=== PATIENT | female | born 1935 | race Caucasian/White ===

== ENCOUNTER 2018-07-04 12:24 | Outpatient (REF) | payer MEDICARE, SELFPAY ==
[2018-07-04 21:45] LABS: Mean Corp. HGB Concentration 30.8 g/dL (32.0-36.0); Mean Corpuscular Hemoglobin 28.5 pg (27.0-33.0); Mean Corpuscular Volume 92.6 fL (80-95); Mean Platelet Volume 9.7 fL (8.0-11.0); Platelet Count 240 x1000/uL (130-400); RBC 4.21 m/cumm (4.00-5.20); RBC Distribution Width 15.2 % (11.7-14.6); White Blood Cell Count 5.62 k/cumm (4.4-10.8)
[2018-07-04 22:07] LABS: Anion Gap 9.9 mmol/L (3-11); BUN 34 mg/dL (7-18); CO2 28.1 mmol/L (21.0-32.0); Calcium 8.5 mg/dL (8.5-10.1); Chloride 109 mmol/L (98-107); Glucose 138 mg/dL (70-100); Potassium 4.4 mmol/L (3.5-5.1); Sodium 147 mmol/L (136-145); TSH (W/Ref FT4) 3.32 uIU/mL (0.358-3.74)
[2018-07-04 22:39] LABS: Hemoglobin A1C 7.1 % (4.5-6.2)
[2018-07-09 10:37] LABS: Methylmalonic Acid 0.44 nmol/mL (<=0.40)
== END 2018-07-04 12:44 ==
LOC: NCHCN 12:24
PROVIDERS: PCP Family Medicine; Visit Provider Family Medicine
DX: E11.9 Type 2 diabetes mellitus without complications (principal); E53.8 Deficiency of other specified B group vitamins
CPT/HCPCS: 80048; 80186; 85027; 83036; 84443

== ENCOUNTER 2018-10-03 13:59 | Outpatient (REF) | payer MEDICARE, SELFPAY ==
[2018-10-03 19:24] LABS: HCT 39.3 % (36.0-46.0); HGB 12.4 g/dL (12.0-15.5); Mean Corp. HGB Concentration 31.6 g/dL (32.0-36.0); Mean Corpuscular Volume 91.8 fL (80-95); Platelet Count 222 x1000/uL (130-400); RBC 4.28 m/cumm (4.00-5.20); RBC Distribution Width 14.9 % (11.7-14.6)
[2018-10-03 19:39] LABS: Bilirubin Negative (Negative); Blood Negative (Negative); Clarity Clear; Glucose Negative (Negative); Ketones Negative (Negative); Leukocyte Esterase Trace (Negative); Nitrite Negative (Negative); Specific Gravity 1.015 (1.005-1.025); Urobilinogen 0.2 EU/dL (Up TO 0.2)
[2018-10-03 20:02] LABS: ALT 25 U/L (12-78); AST 16 U/L (15-37); Albumin 3.3 g/dL (3.4-5.0); Alkaline Phosphatase 120 U/L (46-116); Anion Gap 7.6 mmol/L (3-11); BUN 31 mg/dL (7-18); Bilirubin, Total 0.4 mg/dL (0.2-1.0); CO2 30.4 mmol/L (21.0-32.0); CREATININE 1.44 mg/dL (0.55-1.02); Calcium 8.6 mg/dL (8.5-10.1); Chloride 108 mmol/L (98-107); Estimated GFR 34.85 (mL/min/1.73m2); Glucose 105 mg/dL (70-100); Potassium 4.6 mmol/L (3.5-5.1); Sodium 146 mmol/L (136-145); TSH (W/Ref FT4) 2.22 uIU/mL (0.358-3.74); Total Protein 6.2 g/dL (6.4-8.2)
[2018-10-03 20:02] LABS: Epithelial Cells Many HPF (Negative); RBC Negative (0-2)
[2018-10-03 20:03] LABS: Bacteria Few HPF (Negative); C & S Indicated? No/Sq. Contamination; Casts Negative LPF (Negative); Crystals Negative HPF (Negative); Mucus Negative (Negative)
[2018-10-11 12:43] LABS: Codeine Negative ng/mL (Cutoff: 25); Dihydrocodeine Negative ng/mL (Cutoff: 25); Hydrocodone Negative ng/mL (Cutoff: 25); Hydromorphone Negative ng/mL (Cutoff: 25); Morphine Negative ng/mL (Cutoff: 25); Naloxone Negative ng/mL (Cutoff: 25); Norhydrocodone Negative ng/mL (Cutoff: 25); Noroxycodone Negative ng/mL (Cutoff: 25); Noroxymorphone Negative ng/mL (Cutoff: 25); Opiates Interpretation Negative.
== END 2018-10-03 14:19 ==
LOC: NCHCN 13:59
PROVIDERS: PCP Family Medicine; Visit Provider Family Medicine
DX: E03.9 Hypothyroidism, unspecified (principal); I10 Essential (primary) hypertension; R31.9 Hematuria, unspecified; R10.9 Unspecified abdominal pain; Z79.899 Other long term (current) drug therapy
CPT/HCPCS: 80053; 80361; 85027; 81003; 81015; 84443

== ENCOUNTER 2019-05-13 22:28 | Outpatient (REF) | payer MEDICARE, SELFPAY ==
[2019-05-13 20:50] LABS: Abs Immature Grans 0.01 k/cumm (0.0-0.09); Absolute Basophil Count 0.02 k/cumm (0.0-0.2); Absolute Eosinophil Count 0.17 k/cumm (0.0-0.7); Absolute Lymphocyte Count 1.56 k/cumm (1.2-3.4); Absolute Monocyte Count 0.53 k/cumm (0.11-0.7); Basophils % 0.3; Eosinophils % 2.5; HCT 38.5 % (36.0-46.0); HGB 11.9 g/dL (12.0-15.5); Immature Grans % 0.1; Lymphocytes % 23.3; Mean Corp. HGB Concentration 30.9 g/dL (32.0-36.0); Mean Corpuscular Hemoglobin 28.3 pg (27.0-33.0); Mean Corpuscular Volume 91.4 fL (80-95); Mean Platelet Volume 9.2 fL (8.0-11.0); Monocytes % 7.9; Neutrophils % 65.9; Platelet Count 333 x1000/uL (130-400); RBC 4.21 m/cumm (4.00-5.20); RBC Distribution Width 15.5 % (11.7-14.6); White Blood Cell Count 6.69 k/cumm (4.4-10.8)
[2019-05-13 21:01] LABS: Prothrombin Time 19.5 sec (9.3-11.0)
[2019-05-13 21:07] LABS: ALT 14 U/L (14-59); Albumin 3.1 g/dL (3.4-5.0); Alkaline Phosphatase 115 U/L (46-116); Anion Gap 10.9 mmol/L (3-11); BUN 34 mg/dL (7-18); Bilirubin, Total 0.2 mg/dL (0.2-1.0); CO2 29.1 mmol/L (21.0-32.0); CREATININE 1.41 mg/dL (0.55-1.02); Calcium 8.5 mg/dL (8.5-10.1); Chloride 107 mmol/L (98-107); Estimated GFR 35.62 (mL/min/1.73m2); Glucose 129 mg/dL (70-100); Potassium 4.6 mmol/L (3.5-5.1); Sodium 147 mmol/L (136-145); Total Protein 6.4 g/dL (6.4-8.2)
[2019-05-13 21:24] LABS: AST 18 U/L (15-37)
== END 2019-05-13 22:48 ==
LOC: NCHCN 22:28
PROVIDERS: Physician Assistant Medical; PCP Family Medicine; Visit Provider Family Medicine
DX: I10 Essential (primary) hypertension (principal); Z79.01 Long term (current) use of anticoagulants; Z86.718 Personal history of other venous thrombosis and embolism; Z01.818 Encounter for other preprocedural examination
CPT/HCPCS: 80053; 85025; 85610

== ENCOUNTER 2019-06-25 20:10 | Inpatient (IN) | payer MEDICARE, SELFPAY ==
[2019-06-25] VITALS (24 sets, daily range): BP systolic 104–147; BP diastolic 53–92; PULSE 60–95; RESP 13–27; TEMP 36.9–37.4; O2SAT 91–96
--- NOTE | 2019-06-25 20:40 | ED.GENADUL_ITS ---
Discharge Plan Disposition Patient Disposition: [facility] INPATIENT Condition: Poor Discharge Details Chief Complaint: GenMedical Clinical Impression: Acute cholecystitis Primary Care Provider: Cassandra Wilson V ED Provider: Mauricio Starr [place] Meds and New Rx's Prescriptions: No Action furosemide 40 MG tablet 40 mg PO DAILY RF: 0 gabapentin [Neurontin] 600 MG tablet 600 mg PO TID RF: 0 nystatin [Nystop] 60 GM powder 1 applic Topical .QOD PRNRF: 0 glucosamine villanueva 2KCl-chondroit 1 EACH tablet 2 tab PO DAILY RF: 0 cholecalciferol (vitamin D3) 1,000 UNITS tablet 1 tab PO DAILY RF: 0 warfarin [Coumadin] 2.5 MG tablet 0 mg PO QPM Qty: 50 RF: 0 losartan 100 MG tablet 100 mg PO QAM Qty: 1 RF: 0 hydrocodone-acetaminophen [Vicodin] 1 EACH tablet 1 ea PO BID PRNQty: 2 RF: 0 levothyroxine [Synthroid] 75 MCG tablet 75 mcg PO DAILY Qty: 1 RF: 0 Medical Decision Making Patient presenting with nausea/vomiting and general weakness with inability to keep anything down over the last few days. Has generalized abdominal discomfort but has a nontender abdomen. Initial blood pressure low but subsequently after fluids here normal. Her A. fib is rate controlled. Consider bowel obstruction as she has had hysterectomy in the past. Consider gastroenteritis. Consider sepsis but suspect low blood pressure is more related to dehydration. Continue fluid resuscitation. Check laboratory studies and EKG. CT scan of chest/abdomen/pelvis ordered without contrast given previous elevated creatinine. 22:20 -patient much more comfortable after Phenergan and morphine. Laboratory studies significant for a white count of 12.8. Hemoglobin is 9.3 which is unchanged from earlier this month but no anemia in the last few months. INR is 1.6. Creatinine elevated to 1.8 which is a little above her baseline. Liver function is okay. Troponin is negative. Lipase is normal. Urine dip was negative for everything except protein. Micro shows 5-10 white cells but will not treat for UTI unless culture positive. EKG shows rate controlled A. fib. C T of the chest/abdomen/pelvis without contrast shows no chest pathology. She has evidence of acute cholecystitis as well as inflammatory changes of the retroperitoneal duodenum. Case discussed with surgery, Dr. Coles. Patient will be given Zosyn IV and vitamin K p.o. here. Patient to be admitted to surgical service for further management of the acute cholecystitis. Patient and aware of diagnosis and need for admission. Medical Records Medical records reviewed: Yes I reviewed the patient's medical records. Lab Data Lab results reviewed: Yes I reviewed the patient's lab results. ECG Data Attestation: I personally reviewed and interpreted this ECG (s) as follows: Prior ECG tracings: not available for review Interpretation: Atrial fibrillation at a rate of 81. Normal intervals and axis. Normal ST segments. HPI General Mode of arrival: EMS . Date/Time Provider Initiated Documentation: 06/25/19 20:27 . Limitations to Documentation: no limitations . Information obtained by: patient, EMS, RN notes reviewed and old records reviewed . HPI Narrative: Patient brought in by ambulance for evaluation of vomiting and not feeling well. Patient has been ill for the last 5 days. Has not been able to keep anything down for the last few days. Has not been able to take her medications. Reports low-grade fevers at home. Denies cough or shortness of breath. Denies chest pain. Has abdominal discomfort, nausea and vomiting. Reports one episode of diarrhea yesterday. Does continue to make some urine. Feels generally weak. Initial blood pressure for EMS was in the 80s. She has received about 200 of fluid and blood pressure is now normal on arrival. She received Zofran but still has some nausea. Related Data Home Medications Medication Instructions Recorded Confirmed furosemide 40 mg PO DAILY 05/26/14 06/25/19 gabapentin [Neurontin] 600 mg PO TID 05/26/14 06/25/19 glucosamine villanueva 2KCl-chondroit 2 tab PO DAILY 05/26/14 06/25/19 nystatin [Nystop] 1 applic TOPICAL .QOD PRN 05/26/14 06/25/19 cholecalciferol (vitamin D3) 1 tab PO DAILY 11/10/14 06/25/19 warfarin [Coumadin] 0 mg PO QPM #50 tab 11/14/14 06/25/19 hydrocodone-acetaminophen [Vicodin 1 ea PO BID PRN #2 tablet 11/28/16 06/25/19 5-300 mg Tablet] levothyroxine [Synthroid] 75 mcg PO DAILY #1 tablet 11/28/16 06/25/19 losartan 100 mg PO QAM #1 tab 11/28/16 06/25/19 Previous Rx's Medication Instructions Recorded warfarin [Coumadin] 0 mg PO QPM #50 tab 11/14/14 hydrocodone-acetaminophen [Vicodin 1 ea PO BID PRN #2 tablet 11/28/16 5-300 mg Tablet] levothyroxine [Synthroid] 75 mcg PO DAILY #1 tablet 11/28/16 losartan 100 mg PO QAM #1 tab 11/28/16 Allergies Allergy/AdvReac Type Severity Reaction Status Date / Time propranolol AdvReac Mild Dizziness/L Unverified 06/25/19 21:10 ightheade General Stated Complaint: GenMedical ALVIN: 3 Review of Systems Narrative: 05/11 Review of Systems completed and is negative except as stated above in HPI (Systems reviewed: Const, Eyes, ENT, Resp, CV, GI, , MSK, Skin, Neuro) [facility] Medical History Atrial fibrillation (Chronic) CKD (chronic kidney disease) (Chronic) a. baseline creatinine 1.4 to 1.5 Diabetes mellitus, type II (Chronic) Glaucoma (Chronic) Hypertension (Chronic) Hypothyroidism (Chronic) Melanoma (Inactive) Obesity (Chronic) Pulmonary embolism (Chronic) Spinal stenosis (Chronic) Surgical History (Updated 06/25/19 @ 22:27 by Mauricio Starr MD) S/P hysterectomy (Inactive) Status post total shoulder replacement (Chronic) Social History Smoking/Tobacco Use Status: Never Alcohol Intake: never Drug use: Never Substance use type: does not use Do you feel safe at home: Yes Do you feel safe in your relationship?: Yes Exam Narrative Exam Narrative: Vitals: Afebrile. Normal vital signs and room air pulse oximetry. Const: Elderly obese female who appears to feel unwell but is not in acute distress. HEENT: NC/AT. Normal facial exam. Dry mucous membranes. Eyes: Normal conjunctiva and sclera. Neck: Supple. Trachea midline. Lungs: Normal respiratory effort. Lungs are clear. Cor: Irr/irr without murmur/gallop. Good distall pulses. GI: Soft. NT/ND. No guarding or rebound. Neuro: A+O x 3. CN grossly in tact. General weakness but no focal deficit. Ext: No C/C/. Pedal edema present. Skin: Warm and dry without rash. Course Vital Signs Vital signs: Vital Signs Temperature 99.3 F 06/25/19 20:21 Pulse 86 06/25/19 20:21 Respiratory Rate 23 06/25/19 20:21 Blood Pressure 145/60 H 06/25/19 20:21 Pulse Oximetry 96 06/25/19 20:21 Temperature 99.3 F 06/25/19 20:21 Temperature Source Skin 06/25/19 20:21 Pulse 86 06/25/19 20:21 Respiratory Rate 23 06/25/19 20:21 Respiratory Effort 06/25/19 20:34 Blood Pressure 145/60 H 06/25/19 20:21 Blood Pressure Position Supine 06/25/19 20:21 Pulse Oximetry 96 06/25/19 20:21 Oxygen Delivery Method Room Air 06/25/19 20:21 Oxygen Flow Rate 0 06/25/19 20:21 Pain Level 7 06/25/19 20:21
[2019-06-25] MEDS: Normal Saline 1,000 ML 1000 ML IV (20:56)
[2019-06-25] MEDS: Lactated Ringers 1,000 ML 125 ML IV (21:09)
[2019-06-25 21:10] LABS: Abs Immature Grans 0.03 k/cumm (0.0-0.09); Absolute Basophil Count 0.01 k/cumm (0.0-0.2); Absolute Eosinophil Count 0.01 k/cumm (0.0-0.7); Absolute Lymphocyte Count 0.81 k/cumm (1.2-3.4); Absolute Monocyte Count 0.88 k/cumm (0.11-0.7); Absolute Neutrophil Count 11.07 k/cumm (1.2-6.7); Basophils % 0.1; Eosinophils % 0.1; HCT 31.5 % (36.0-46.0); HGB 9.3 g/dL (12.0-15.5); Immature Grans % 0.2; Lymphocytes % 6.3; Mean Corp. HGB Concentration 29.5 g/dL (32.0-36.0); Mean Corpuscular Hemoglobin 27.4 pg (27.0-33.0); Mean Corpuscular Volume 92.6 fL (80-95); Monocytes % 6.9; Neutrophils % 86.4; Platelet Count 298 x1000/uL (130-400); RBC Distribution Width 16.7 % (11.7-14.6); White Blood Cell Count 12.81 k/cumm (4.4-10.8)
[2019-06-25 21:15] LABS: INR 1.6 (0.9-1.1); Prothrombin Time 16.4 sec (9.3-11.0)
[2019-06-25 21:28] LABS: ALT 21 U/L (14-59); AST 13 U/L (15-37); Albumin 2.4 g/dL (3.4-5.0); Alkaline Phosphatase 128 U/L (46-116); BUN 38 mg/dL (7-18); Bilirubin, Total 0.6 mg/dL (0.2-1.0); CREATININE 1.78 mg/dL (0.55-1.02); Calcium 8.2 mg/dL (8.5-10.1); Chloride 106 mmol/L (98-107); Estimated GFR 27.22 (mL/min/1.73m2); Glucose 125 mg/dL (74-106); Magnesium 2.2 mg/dL (1.8-2.4); Potassium 4.1 mmol/L (3.5-5.1); Sodium 145 mmol/L (136-145); Total Protein 7.1 g/dL (6.4-8.2); Troponin I < 0.05 ng/Ml (<0.06)
--- NOTE | 2019-06-25 21:34 | DI.CT_ITS ---
EXAM: CT CHEST/ABD/PEL WO CLINICAL HISTORY: fever, vomiting, abdominal discomfort TECHNIQUE: CT examination of the chest, abdomen and pelvis was performed without contrast administra tion. COMPARISON: CHEST 2 VIEWS PA,LAT from 11/10/2014 CHEST 2 VIEWS PA,LAT from 11/12/2014 XR CHEST 2V PA LATERAL from 06/03/2019 FINDINGS: There are areas of atelectasis and/or scarring in the right lung base. A couple of calcific intrapulm onary nodules are noted. There is 13 x 8 x 13 millimeter in diameter mass-like lesion of the left upper lobe anteriorly which is pleural based. Findings are nonspecific but possibility of a neoplastic mass would have to be jackson sed. Additional evaluation with PET-CT or tissue sampling should be considered. The thoracic aorta is ectatic at about 38 millimeters. Dilatation main pulmonary artery and right an d left pulmonary artery also noted consistent with chronic pulmonary arterial hypertension. No pleur al effusion or pneumothorax seen. Tracheobronchial tree appears intact. Liver and spleen are grossly unremarkable by noncontrast criteria. Gallbladder wall is thickened and there is pericholecystic edema raising the possibility of acute cholecystitis. There is an apparent large gallstone in the gallbladder neck. No gross biliary dilatation seen. Pancreas is grossly unr emarkable. The kidneys show bilateral cortical atrophy. There is a presumed left upper pole renal c yst. No evidence of hydronephrosis or nephrolithiasis. Adrenals are unremarkable. Abdominal aorta is of normal diameter. No gross abdominal or pelvic adenopathy. No significant abdo carina wall hernia. No evidence of bowel obstruction. Appendix is not specifically visualized but th ere is no evidence of appendicitis or diverticulitis. IMPRESSION: 1. Findings raising the possibility of acute and/or chronic cholecystitis in a patient with cholelit hiasis, please correlate clinically. 2. Right basilar atelectasis, small areas of consolidation not entirely excluded. 3. Mass-like lesion left upper lobe, 13 x 13 x 8 millimeters, neoplastic disease not excluded, additi onal evaluation PET/CT or tissue sampling should be considered.
[2019-06-25 21:39] LABS: Lipase 63 U/L (73-393)
[2019-06-25 21:43] LABS: Bilirubin Negative (Negative); Blood Negative (Negative); Clarity Clear (Clear); Glucose Negative (Negative); Ketones Negative (Negative); Leukocyte Esterase Negative (Negative); Nitrite Negative (Negative); Urobilinogen 0.2 EU/dL (Up TO 0.2); pH 5.5 (5-8)
--- NOTE | 2019-06-25 22:05 | DI.VRAD_ITS ---
Addendum created by Jamey Ribera MD on 06/25/2019 10:06:[address] Impression: No acute abnormality in the chest. Initial report created on 06/25/2019 10:05:11 PM EST PROCEDURE INFORMATION: Exam: CT Chest Without Contrast Exam date and time: 06/25/2019 9:34 PM Age: 84 years old Clinical history: Fever and vomiting and other: Abdominal discomfort TECHNIQUE: Imaging protocol: Computed tomography of the chest without contrast. Radiation optimization: All CT scans at this facility use at least one of these dose optimization techniques: automated exposure control; mA and/or kV adjustment per patient size (includes targeted exams where dose is matched to clinical indication); or iterative reconstruction. COMPARISON: No relevant prior studies available. FINDINGS: Lungs: Bibasilar atelectasis. Pleural space: Unremarkable. No pneumothorax. No pleural effusion. Heart: Unremarkable. No cardiomegaly. No pericardial effusion. Aorta: Unremarkable. No aortic aneurysm. Lymph nodes: Unremarkable. No enlarged lymph nodes. Bones/joints: Status post left total shoulder arthroplasty. Soft tissues: Unremarkable. IMPRESSION: PROCEDURE INFORMATION: Exam: CT Abdomen And Pelvis Without Contrast Exam date and time: 06/25/2019 9:34 PM Age: 84 years old Clinical history: Fever and vomiting and other: Abdominal discomfort TECHNIQUE: Imaging protocol: Computed tomography of the abdomen and pelvis without contrast. Radiation optimization: All CT scans at this facility use at least one of these dose optimization techniques: automated exposure control; mA and/or kV adjustment per patient size (includes targeted exams where dose is matched to clinical indication); or iterative reconstruction. COMPARISON: No relevant prior studies available. FINDINGS: Liver: Normal. No mass. Gallbladder and bile ducts: Distended gallbladder with 2.4 cm gallstone at the gallbladder neck. Associated gallbladder wall thickening and edema. Pancreas: Normal. No ductal dilation. Spleen: Normal. No splenomegaly. Adrenals: Normal. No mass. Kidneys and ureters: There is diffuse bilateral renal cortical thinning, consistent with chronic renal insufficiency. Left superior pole 1.5 cm renal cyst. Stomach and bowel: Bowel wall thickening and adjacent edema about the retroperitoneal duodenum. Diverticulosis in the distal colon without diverticulitis. No obstruction. Appendix: No evidence of appendicitis. Intraperitoneal space: Unremarkable. No free air. No significant fluid collection. Vasculature: The aorta demonstrates moderate atherosclerotic calcification. No abdominal aortic aneurysm. Lymph nodes: Unremarkable. No enlarged lymph nodes. Bladder: Unremarkable as visualized. Reproductive: Unremarkable as visualized. Bones/joints: Unremarkable. No acute fracture. Soft tissues: Unremarkable. IMPRESSION: 1. Acute cholecystitis with 2.4 cm gallstone at the gallbladder neck. 2. Nonspecific bowel wall thickening and edema involving the retroperitoneal duodenum could represent infectious or inflammatory enteritis. Dictated and Authenticated by: Jamey Ribera MD. Ordering:FANG Martínez MD
[2019-06-25 22:08] LABS: C & S Indicated? Yes; Crystals Moderate Amorphous HPF (Negative); Epithelial Cells Few HPF (Negative); Mucus Negative (Negative); RBC Negative HPF (0-2)
[2019-06-25] MEDS: Phytonadione 5 MG TABLET 10 MG PO ×2 (22:28→22:32)
[2019-06-25] MEDS: HYDROmorphone 2 MG/ML VIAL 0.5 MG IVP (22:31)
[2019-06-25] MEDS: PIPERACILLIN/TAZO 3.375 GM in Normal Saline 50 ML IVPB (22:32)
--- NOTE | 2019-06-25 22:45 | W.PM.HP.N ---
Date of service: 06/25/19 Time of Service: 22:45 Assessment and Plan Assessment and plan (1) Acute cholecystitis due to biliary calculus: Status: Acute Assessment and plan: pt is poor sx candidate continue abx and supportive care transfuse in anticipation of poss surgery pt is going to need work up from AYLIN mass- bx. (2) Atrial fibrillation: Status: Chronic Assessment and plan: check EKG (3) Pulmonary embolism: Status: Chronic Assessment and plan: hold coumadin and check INR in am Vit K today (4) Cerebellar ataxia: Status: Chronic (5) Spinal stenosis: Status: Chronic (6) Glaucoma: Status: Chronic (7) CKD (chronic kidney disease): Status: Chronic (8) Hypertension: Status: Chronic (9) Diabetes mellitus, type II: Status: Chronic Assessment and plan: DM counselor (10) Chronic anemia: Status: Acute Assessment and plan: etiology unknown History of Present Illness Consults Consult date: 06/25/19 Requesting physician: Mauricio Starr Narrative: PH admitted w/ 5 days of RUQ pain and N/V. pt also noted to be anemic since Apr. She had a total shoulder done at [facility] in Apr. Denies noticing blood in stools or dark stools. Has been having signif diarrhea for the last few days. She is on chronic coumadin for a PE 5 yrs ago. Also in A. fib. She is not a smoker and not on home O2. She is audible wheezing. Her was a smoker and is home O2. She did not know she had GS. She is still in pain today. But she is hungry. no headaches. No CP no productive cough. no dysuria. no leg pain or swelling. + SOB. feels week. She is non ambulatory at home. Review of Systems All systems reviewed & are unremarkable except as noted in HPI and below PFSH Medical History (Updated 06/26/19 @ 21:47 by Supriya Coles DO) Acute cholecystitis due to biliary calculus (Acute) Atrial fibrillation (Chronic) Chronic anemia (Acute) CKD (chronic kidney disease) (Chronic) a. baseline creatinine 1.4 to 1.5 Diabetes mellitus, type II (Chronic) Glaucoma (Chronic) Hypertension (Chronic) Hypothyroidism (Chronic) Mass of left lung (Acute) Melanoma (Inactive) Obesity (Chronic) Pulmonary embolism (Chronic) Spinal stenosis (Chronic) Surgical History (Updated 06/25/19 @ 22:27 by Mauricio Starr MD) S/P hysterectomy (Inactive) Status post total shoulder replacement (Chronic) Social History Smoking/Tobacco Use Status: Never Alcohol Intake: never Drug use: Never Substance use type: does not use Do you feel safe at home: Yes Do you feel safe in your relationship?: Yes Meds Home Medications and Allergies Home Medications Medication Instructions Recorded Confirmed Type furosemide 40 mg PO DAILY 05/26/14 06/25/19 History gabapentin [Neurontin] 600 mg PO TID 05/26/14 06/25/19 History glucosamine villanueva 2KCl-chondroit 2 tab PO DAILY 05/26/14 06/25/19 History nystatin [Nystop] 1 applic TOPICAL .QOD PRN 05/26/14 06/25/19 History cholecalciferol (vitamin D3) 1 tab PO DAILY 11/10/14 06/25/19 History warfarin [Coumadin] 0 mg PO QPM #50 tab 11/14/14 06/25/19 Rx hydrocodone-acetaminophen [Vicodin 1 ea PO BID PRN #2 tablet 11/28/16 06/25/19 Rx 5-300 mg Tablet] levothyroxine [Synthroid] 75 mcg PO DAILY #1 tablet 11/28/16 06/25/19 Rx losartan 100 mg PO QAM #1 tab 11/28/16 06/25/19 Rx Allergies Allergy/AdvReac Type Severity Reaction Status Date / Time propranolol AdvReac Mild Dizziness/L Unverified 06/25/19 21:10 ightheade Exam Const General: cooperative, healthy appearing, comfortable, no acute distress, well developed and well groomed Nutritional Appearance: average body habitus and well nourished Orientation: alert, awake and oriented x3 HENMT Head: normal to inspection, normocephalic and atraumatic Ears: hearing grossly normal bilaterally and external ears normal General nose exam: external nose normal Face and sinus: normal facial exam and sinuses nontender Mouth: oral mucosae normal, lip normal, tongue normal and moist mucous membranes Teeth and gingiva: dentition normal Eyes General: appearance normal, both eyes and all related structures Conjunctivae: conjunctivae normal Sclera: sclerae normal Pupils: PERRL Neck Neck: normal visual inspection and full ROM Chest Chest: normal inspection of the chest Resp Effort & Inspection: normal respiratory effort, able to speak in complete sentences, no cough, no nasal flaring, not tachypneic and no use of accessory muscles Auscultation: clear to auscultation bilaterally, no rales, no rhonchi and wheezes Other: she feels very SOB and tired. Cardio Jugular venous pressure: no JVD Rate: regular rate Rhythm: regular rhythm GI Inspection: normal to inspection, no edema and non-distended Palpation: soft, no masses, nontender and No ascites Auscultation: normal bowel sounds Other: still has RUQ pain. tender. BS are few. no hernia. obese. Skin General skin exam: no rashes or lesions noted Trauma: no lacerations or abrasions Neuro General: alert, oriented x3, oriented, gait normal, moves all extremities, no focal motor deficits and CN's II-XI intact bilaterally Cognition: normal cognition Speech: speech normal Gait: normal gait Motor: muscle tone normal throughout Extrem General: normal to inspection, full ROM and no clubbing, cyanosis or edema Psych Appearance: grossly normal and well kempt Mental Status: mental status grossly normal Speech and Movement: speech and movement normal Affect: normal affect Results Labs Result diagrams: 06/26/19 06:45 06/26/19 06:45 Labs: Laboratory Results - last 24 hr 06/25/19 06/25/19 06/25/19 20:40 20:40 20:40 WBC 12.81 H RBC 3.40 L Hgb 9.3 L Hct 31.5 L MCV 92.6 MCH 27.4 MCHC 29.5 L RDW 16.7 H Plt Count 298 D MPV 9.0 Immature Gran % 0.2 Neutrophils % 86.4 Lymphocytes % 6.3 Monocytes % 6.9 Eosinophils % 0.1 Basophils % 0.1 Absolute Neutrophils 11.07 H Absolute Lymphocytes 0.81 L Absolute Monocytes 0.88 H Absolute Eosinophils 0.01 Absolute Basophils 0.01 PT INR Sodium 145 Potassium 4.1 Chloride 106 Carbon Dioxide 30.0 Anion Gap 9.0 BUN 38 H Creatinine 1.78 H Estimated GFR/1.73 m2 27.22 Glucose 125 H Lactate 1.0 Calcium 8.2 L Magnesium 2.2 Total Bilirubin 0.6 AST 13 L ALT 21 Alkaline Phosphatase 128 H Troponin I < 0.05 Total Protein 7.1 Albumin 2.4 L Lipase 63 L Urine Color Urine Clarity Urine pH Ur Specific [place] Urine Protein Urine Ketones Urine Blood Urine Nitrite Urine Bilirubin Urine Urobilinogen Ur Leukocyte Esterase Urine RBC Urine WBC Ur Epithelial Cells Urine Crystals Urine Bacteria Urine Casts Urine Mucus Ur Culture Indicated? Urine Glucose 06/25/19 06/25/19 20:40 20:47 WBC RBC Hgb Hct MCV MCH MCHC RDW Plt Count MPV Immature Gran % Neutrophils % Lymphocytes % Monocytes % Eosinophils % Basophils % Absolute Neutrophils Absolute Lymphocytes Absolute Monocytes Absolute Eosinophils Absolute Basophils PT 16.4 H INR 1.6 H Sodium Potassium Chloride Carbon Dioxide Anion Gap BUN Creatinine Estimated GFR/1.73 m2 Glucose Lactate Calcium Magnesium Total Bilirubin AST ALT Alkaline Phosphatase Troponin I Total Protein Albumin Lipase Urine Color Yellow Urine Clarity Clear Urine pH 5.5 Ur Specific [place] 1.020 Urine Protein 100 H Urine Ketones Negative Urine Blood Negative Urine Nitrite Negative Urine Bilirubin Negative Urine Urobilinogen 0.2 Ur Leukocyte Esterase Negative Urine RBC Negative Urine WBC 5-10 Ur Epithelial Cells Few Urine Crystals Moderate amorphous Urine Bacteria Not Applicable Urine Casts 20-50 fine granular Urine Mucus Negative Ur Culture Indicated? Yes Urine Glucose Negative Last Vital Signs Temp 37.4 C 06/25/19 20:21 Pulse 86 06/25/19 22:19 Resp 18 06/25/19 22:19 BP 145/60 H 06/25/19 20:21 Pulse Ox 96 06/25/19 22:19
[2019-06-25 23:21] LABS: Iron 15 ug/dL (50-170); Total Iron Binding Capacity 165 ug/dL (250-450); Transferrin Sat 9 % (15-50)
[2019-06-26] VITALS (22 sets, daily range): BP systolic 89–166; BP diastolic 45–79; PULSE 65–94; RESP 14–27; TEMP 36–37.5; O2SAT 91–96
[2019-06-26] MEDS: FAMOTIDINE 20 MG/50 ML BAG 100 MG IV (00:22)
[2019-06-26] MEDS: Normal Saline Flush 10 ML SYR IVP ×2 (00:22→22:27)
[2019-06-26] MEDS: HYDROmorphone 2 MG/ML VIAL 0.5 MG IVP (01:14)
[2019-06-26] MEDS: Normal Saline 1,000 ML 125 ML IV ×2 (02:28→10:55)
[2019-06-26] MEDS: PIPERACILLIN/TAZO 2.25 GM in Normal Saline 50 ML IVPB ×4 (04:29→22:27)
[2019-06-26 07:06] LABS: Abs Immature Grans 0.03 k/cumm (0.0-0.09); Absolute Basophil Count 0.01 k/cumm (0.0-0.2); Absolute Eosinophil Count 0.01 k/cumm (0.0-0.7); Absolute Lymphocyte Count 0.87 k/cumm (1.2-3.4); Absolute Monocyte Count 0.83 k/cumm (0.11-0.7); Absolute Neutrophil Count 8.78 k/cumm (1.2-6.7); Basophils % 0.1; Eosinophils % 0.1; HCT 29.2 % (36.0-46.0); HGB 8.5 g/dL (12.0-15.5); Immature Grans % 0.3; Lymphocytes % 8.3; Mean Corp. HGB Concentration 29.1 g/dL (32.0-36.0); Mean Corpuscular Hemoglobin 27.1 pg (27.0-33.0); Mean Platelet Volume 8.8 fL (8.0-11.0); Monocytes % 7.9; Neutrophils % 83.3; Platelet Count 268 x1000/uL (130-400); RBC 3.14 m/cumm (4.00-5.20); RBC Distribution Width 16.7 % (11.7-14.6); Reticulocyte 1.5 % (0.5-2.4); White Blood Cell Count 10.53 k/cumm (4.4-10.8)
[2019-06-26 07:18] LABS: INR 1.5 (0.9-1.1); PTT Activated 40.8 sec (21.0-31.4); Prothrombin Time 15.1 sec (9.3-11.0)
[2019-06-26 07:21] LABS: ALT 18 U/L (14-59); AST 12 U/L (15-37); Albumin 2.1 g/dL (3.4-5.0); Alkaline Phosphatase 113 U/L (46-116); Anion Gap 11.3 mmol/L (3-11); BUN 36 mg/dL (7-18); Bilirubin, Total 0.8 mg/dL (0.2-1.0); CO2 25.7 mmol/L (21.0-32.0); CREATININE 1.76 mg/dL (0.55-1.02); Calcium 8.1 mg/dL (8.5-10.1); Chloride 109 mmol/L (98-107); Estimated GFR 27.58 (mL/min/1.73m2); Glucose 113 mg/dL (74-106); Lipase 76 U/L (73-393); Magnesium 2.1 mg/dL (1.8-2.4); Potassium 3.9 mmol/L (3.5-5.1); Sodium 146 mmol/L (136-145); Total Protein 5.8 g/dL (6.4-8.2)
[2019-06-26 07:42] LABS: Iron 13 ug/dL (50-170); Total Iron Binding Capacity 130 ug/dL (250-450); Transferrin Sat 10 % (15-50)
--- NOTE | 2019-06-26 10:10 | PDOC.CMIN ---
- If Service Date Differs Date of service: 06/26/19 Time of Service: 10:10 Care Management Initial Assess REASON FOR HOSPITALIZATION:: Acute radha. PAST MEDICAL HISTORY/PAST SURGICAL HISTORY:: Medical History: Atrial fibrillation (Chronic), CKD (chronic kidney disease) (Chronic) - a. baseline creatinine 1.4 to 1.5, Diabetes mellitus, type II (Chronic), Glaucoma (Chronic), Hypertension (Chronic), Hypothyroidism (Chronic), Melanoma (Inactive), Obesity (Chronic), Pulmonary embolism (Chronic), and Spinal stenosis (Chronic). Surgical History: S/P hysterectomy (Inactive) and Status post total shoulder replacement (Chronic). PREVIOUS FUNCTIONAL STATUS/SOCIAL/FAMILY SUPPORTS:: Ijeoma resides in her own home with her Luisito in [place]. She states she has six children, five of whom live nearby and are very supportive. One of her daughters lives in [place] but is currently in [place] visiting for the . Ijeoma states she no longer drives and her and son drive her to medical appointments. When home and feeling well, Ijeoma enjoys crocheting and watching soap operas on television. She recently underwent a left shoulder replacement and had a short stay at the [facility]. Ijeoma shares she no longer ambulates with a FWW and now uses a wheelchair. CURRENT FUNCTIONAL STATUS:: Ijeoma is lying in bed when CM comes to meet with her. She is pleasant and easily engages in conversation. She reports she met with the surgeon today and has elected to have gallbladder surgery, but is unsure when the surgery will be done. ADVANCE DIRECTIVES:: None on file. Has patient been provided with information about the portal?: Yes Did the patient sign up for the portal?: No CODE STATUS:: Full Code INSURANCE COVERAGE / FINANCIAL ISSUES:: [facility]. CURRENT HOME/COMMUNITY SERVICES/EQUIPMENT:: Currently Ijeoma receives [facility] nursing and PT services. She reports she has a commode, a walk-in shower with handrails, and bed guardrails at home. She also has a FWW and a cane but no longer utilizes them because she is now using a wheelchair. PRIMARY CARE PHYSICIAN:: Cassandra Wilson MD, [facility]. POTENTIAL DISCHARGE NEEDS:: Follow-up appointment with primary care physician. PATIENT/FAMILY EDUCATION NEEDS:: Review discharge plan, limitations, follow up plan, including Ask Me Three and self-management. ANTICIPATED BARRIERS TO DISCHARGE:: None. PLAN:: Ijeoma will be discharged home when medically cleared by provider. Anticipate resumption of Home Health nursing and PT services upon discharge. Transport home will be provided by Ijeoma's and son when ready.
[2019-06-26] MEDS: diphenhydrAMINE 25 MG CAP PO (11:03)
[2019-06-26] MEDS: Losartan 50 MG TAB 100 MG PO (11:03)
[2019-06-26] MEDS: Acetaminophen 325 MG TAB 650 MG PO (11:05)
[2019-06-26 11:58] LABS: Amylase 24 U/L (25-115)
--- NOTE | 2019-06-26 14:49 | PHARADMIT ---
Addendum entered by Diane Kiser 06/27/19 12:04: Pharmacy Note Subjective New lung mass reported requiring biopsy, poor surgery candidate, does not ambulate at home Objective VS good, Afebrile, pain 7-10/10, lytes ok, INR 1.2, CrCl~20.6ml/min, SCr up 1.93 Assessment Hydromorphone and Morphine IVP for pain Zosyn renally adjusted No insulin changes Warfain remains on hold in case of surgical intervention (Hx of PE) No bowel meds, no bowel movements Plan per MD note, patient's [place] [facility] [place]: Admission Pharmacy Clinical Review acute radha Code Status Full Code Current Weight 123.5 kg Renally Cleared and Narrow Therapeutic Index Meds Crcl ~32.5 mL/min using adjusted body weight famotidine- recommended to cut dose in half or increase interval to every 36-48 hours for Crcl less than 50 mL/min QTc Value / Action Taken QTc 413 BP Control, Fever BP 111/67 afebrile Electrolytes reviewed Na 146 Cl 109 DVT Prophylaxis enoxaparin Opiate Usage / Scheduled Bowel Regimen Ordered prn/no Plt/SCr for Heparin / Enoxaparin plt 268 SCr 1.76 INR for Warfarin INR 1.5 warfarin on hold due to surgery H/H stable, WBC/Bands h/h 8.5/29.2 (pt has been anemic last 6 month per H+P) WBC 10.53 Antibiotic appropriateness zosyn Cultures and Sensitivities urine culture prelim- no growth 24 hours Surgical ABX d/c within 24 hr n/a DM control / Insulin Dosing BG 113 sliding scale aspart Heart Failure (Check EF%) (ANA LILIA's, B-Block, Diuretics) losartan IV to PO Switch n/a Home Meds Reviewed multiple RN CVICU depressants-hydrocodone/APAP, gabapentin Home Meds Not Ordered cholecalciferol, furosemide, gabapentin, glucosamine, hydrocodone/APAP (has other pain meds ordered), nystatin, warfarin (on hold) Comments I sent MD a text page about famotidine dosing, no response yet iron infusion and transfusion done today, watch h/h
[2019-06-26] MEDS: IRON SUCROSE COMPLEX 200 MG in Normal Saline 100 ML 400 MG IVPB (15:43)
[2019-06-26] MEDS: FAMOTIDINE 20 MG/50 ML BAG 200 MG IVPB (16:36)
--- NOTE | 2019-06-26 18:10 | NUR.NOTE ---
Pt's fingerstick is 146 after eating a clear liquid diet and she has been NPO until this evening - insulin not given for finger stick of 146 because of this nurse's concern that the patient would become hypoglycemic.Nursing Note:
--- NOTE | 2019-06-26 21:21 | PGE_ITS ---
Date of Service Date of service: 06/26/19 Time of Service: 21:21 Assessment and Plan Assessment and plan (1) Chronic anemia: Status: Acute Assessment and plan: unclear if this is still from shoulder replacement/chronic loss/production problem iron and PRBC today- pt is very sob and struggling to breathe. (2) Acute cholecystitis due to biliary calculus: Status: Acute Assessment and plan: pt is poor surgical /anethesia candidate. We will see how she fares in the next 24 hrs If she is still not pain free- than consider transfer to [facility] [place] pt also has a mass in her lung and needs BX. pt spouse was smoker. 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 no radiation. She says that she is hungry. She has had no stool since she has been here. No Cp or SOB. no blood in stools or vomting blood. She has no hx of stomach ulcers. audible wheezing. Exam Resp Effort & Inspection: able to speak in complete sentences, audible wheezes and labored Other: CTA b/l. hx of PE from prolonged car trip- none since. She is not on home O2 Cardio Other: chronic A fib rate controlled GI Other: RUQ pain. no diffuse peritonitis. internal organs and hernias are not palpable. Back/Spine/Pelvis Other: no open wounds Extrem Other: chronic OA. Objective Objective Clinical Data: Abnormal lab results 06/25/19 06/25/19 06/25/19 Range/Units 10:50 20:40 20:40 RBC (4.00-5.20) m/cumm Hgb (12.0-15.5) g/dL Hct (36.0-46.0) % MCHC (32.0-36.0) g/dL RDW (11.7-14.6) % Absolute Neutrophils (1.2-6.7) k/cumm Absolute Lymphocytes (1.2-3.4) k/cumm Absolute Monocytes (0.11-0.7) k/cumm PT (9.3-11.0) sec INR (0.9-1.1) APTT (21.0-31.4) sec Sodium (136-145) mmol/L Chloride (98-107) mmol/L Anion Gap (3-11) mmol/L BUN 38 H (7-18) mg/dL Creatinine 1.78 H (0.55-1.02) mg/dL Glucose 125 H (74-106) mg/dL Calcium 8.2 L (8.5-10.1) mg/dL Iron 15 L (50-170) ug/dL TIBC 165 L (250-450) ug/dL Transferrin % Sat 9 L (15-50) % AST 13 L (15-37) U/L Alkaline Phosphatase 128 H (46-116) U/L Total Protein (6.4-8.2) g/dL Albumin 2.4 L (3.4-5.0) g/dL Amylase (25-115) U/L Lipase 63 L (73-393) U/L Urine Protein (Negative) mg/dL Crossmatch See Detail 06/25/19 06/26/19 06/26/19 Range/Units 20:47 06:45 06:45 RBC 3.14 L (4.00-5.20) m/cumm Hgb 8.5 L (12.0-15.5) g/dL Hct 29.2 L (36.0-46.0) % MCHC 29.1 L (32.0-36.0) g/dL RDW 16.7 H (11.7-14.6) % Absolute Neutrophils 8.78 H (1.2-6.7) k/cumm Absolute Lymphocytes 0.87 L (1.2-3.4) k/cumm Absolute Monocytes 0.83 H (0.11-0.7) k/cumm PT (9.3-11.0) sec INR (0.9-1.1) APTT (21.0-31.4) sec Sodium (136-145) mmol/L Chloride (98-107) mmol/L Anion Gap (3-11) mmol/L BUN (7-18) mg/dL Creatinine (0.55-1.02) mg/dL Glucose (74-106) mg/dL Calcium (8.5-10.1) mg/dL Iron 13 L (50-170) ug/dL TIBC 130 L (250-450) ug/dL Transferrin % Sat 10 L (15-50) % AST (15-37) U/L Alkaline Phosphatase (46-116) U/L Total Protein (6.4-8.2) g/dL Albumin (3.4-5.0) g/dL Amylase (25-115) U/L Lipase (73-393) U/L Urine Protein 100 H (Negative) mg/dL Crossmatch 06/26/19 06/26/19 Range/Units 06:45 06:45 RBC (4.00-5.20) m/cumm Hgb (12.0-15.5) g/dL Hct (36.0-46.0) % MCHC (32.0-36.0) g/dL RDW (11.7-14.6) % Absolute Neutrophils (1.2-6.7) k/cumm Absolute Lymphocytes (1.2-3.4) k/cumm Absolute Monocytes (0.11-0.7) k/cumm PT 15.1 H (9.3-11.0) sec INR 1.5 H (0.9-1.1) APTT 40.8 H (21.0-31.4) sec Sodium 146 H (136-145) mmol/L Chloride 109 H (98-107) mmol/L Anion Gap 11.3 H (3-11) mmol/L BUN 36 H (7-18) mg/dL Creatinine 1.76 H (0.55-1.02) mg/dL Glucose 113 H (74-106) mg/dL Calcium 8.1 L (8.5-10.1) mg/dL Iron (50-170) ug/dL TIBC (250-450) ug/dL Transferrin % Sat (15-50) % AST 12 L (15-37) U/L Alkaline Phosphatase (46-116) U/L Total Protein 5.8 L (6.4-8.2) g/dL Albumin 2.1 L (3.4-5.0) g/dL Amylase 24 L (25-115) U/L Lipase (73-393) U/L Urine Protein (Negative) mg/dL Crossmatch Vital Signs Temperature 36.8 C 06/26/19 18:53 Temperature Source Tympanic 06/26/19 18:53 Pulse 76 06/26/19 18:53 Pulse Rhythm Regular 06/26/19 19:57 Pulse 81 06/25/19 22:47 Respiratory Rate 18 06/26/19 18:53 Respiratory Effort Non-Labored 06/26/19 19:57 Respiratory Depth Normal 06/26/19 19:57 Respiratory Pattern Normal 06/26/19 19:57 Blood Pressure 114/64 06/26/19 18:53 Blood Pressure Mean 101 06/25/19 22:47 Blood Pressure Position Supine 06/25/19 20:21 Pulse Oximetry 96 06/26/19 18:53 Oxygen Delivery Method Room Air 06/26/19 18:53 Oxygen Flow Rate 0 06/26/19 18:53 Pain Level 0 06/26/19 18:53 Comment 06/26/19 15:41 Intake & Output 06/25/19 06/26/19 06/26/19 23:59 11:59 23:59 Intake Total 1100.5 / 1100.5 1350 / 2619.167 1269.167 / 2619.167 Output Total 300 / 500 200 / 500 Balance 1100.5 / 1100.5 1050 / 2119.167 1069.167 / 2119.167 Weight 123.5 kg Intake: IV 1100.5 / 1100.5 1100 / 1329.167 229.167 / 1329.167 Oral 790 / 790 Blood Product 250 / 500 250 / 500 Frozen Plasma Unit 250 / 500 250 / 500 [id number] Rbc Leuko Reduced Unit 0 / 0 [id number] Output: Urine 300 / 500 200 / 500 Other: Urine Color Straw Yellow Light Deya Urine Appearance Sediment Clear Urine Odor Normal Voiding Methods Bedside Commode Laboratory Results WBC 10.53 k/cumm (4.4-10.8) 06/26/19 06:45 RBC 3.14 m/cumm (4.00-5.20) L 06/26/19 06:45 Hgb 8.5 g/dL (12.0-15.5) L 06/26/19 06:45 Hct 29.2 % (36.0-46.0) L 06/26/19 06:45 MCV 93.0 fL (80-95) 06/26/19 06:45 MCH 27.1 pg (27.0-33.0) 06/26/19 06:45 MCHC 29.1 g/dL (32.0-36.0) L 06/26/19 06:45 RDW 16.7 % (11.7-14.6) H 06/26/19 06:45 Plt Count 268 x1000/uL (130-400) 06/26/19 06:45 MPV 8.8 fL (8.0-11.0) 06/26/19 06:45 Immature Gran % 0.3 06/26/19 06:45 Neutrophils % 83.3 06/26/19 06:45 Lymphocytes % 8.3 06/26/19 06:45 Monocytes % 7.9 06/26/19 06:45 Eosinophils % 0.1 06/26/19 06:45 Basophils % 0.1 06/26/19 06:45 Absolute Neutrophils 8.78 k/cumm (1.2-6.7) H 06/26/19 06:45 Absolute Lymphocytes 0.87 k/cumm (1.2-3.4) L 06/26/19 06:45 Absolute Monocytes 0.83 k/cumm (0.11-0.7) H 06/26/19 06:45 Absolute Eosinophils 0.01 k/cumm (0.0-0.7) 06/26/19 06:45 Absolute Basophils 0.01 k/cumm (0.0-0.2) 06/26/19 06:45 Retic Count 1.5 % (0.5-2.4) 06/26/19 06:45 PT 15.1 sec (9.3-11.0) H 06/26/19 06:45 INR 1.5 (0.9-1.1) H 06/26/19 06:45 APTT 40.8 sec (21.0-31.4) H 06/26/19 06:45 Sodium 146 mmol/L (136-145) H 06/26/19 06:45 Potassium 3.9 mmol/L (3.5-5.1) 06/26/19 06:45 Chloride 109 mmol/L (98-107) H 06/26/19 06:45 Carbon Dioxide 25.7 mmol/L (21.0-32.0) 06/26/19 06:45 Anion Gap 11.3 mmol/L (3-11) H 06/26/19 06:45 BUN 36 mg/dL (7-18) H 06/26/19 06:45 Creatinine 1.76 mg/dL (0.55-1.02) H 06/26/19 06:45 Estimated GFR/1.73 m2 27.58 (mL/min/1.73m2) 06/26/19 06:45 Glucose 113 mg/dL (74-106) H 06/26/19 06:45 Lactate 1.0 mmol/L (0.6-1.4) 06/25/19 20:40 Calcium 8.1 mg/dL (8.5-10.1) L 06/26/19 06:45 Magnesium 2.1 mg/dL (1.8-2.4) 06/26/19 06:45 Iron 13 ug/dL (50-170) L 06/26/19 06:45 TIBC 130 ug/dL (250-450) L 06/26/19 06:45 Transferrin % Sat 10 % (15-50) L 06/26/19 06:45 Total Bilirubin 0.8 mg/dL (0.2-1.0) 06/26/19 06:45 AST 12 U/L (15-37) L 06/26/19 06:45 ALT 18 U/L (14-59) 06/26/19 06:45 Alkaline Phosphatase 113 U/L (46-116) 06/26/19 06:45 Troponin I < 0.05 ng/Ml (<0.06) 06/25/19 20:40 Total Protein 5.8 g/dL (6.4-8.2) L 06/26/19 06:45 Albumin 2.1 g/dL (3.4-5.0) L 06/26/19 06:45 Amylase 24 U/L (25-115) L 06/26/19 06:45 Lipase 76 U/L (73-393) 06/26/19 06:45 Urine Color Yellow (Yellow) 06/25/19 20:47 Urine Clarity Clear (Clear) 06/25/19 20:47 Urine pH 5.5 (5-8) 06/25/19 20:47 Ur Specific [place] 1.020 (1.005-1.025) 06/25/19 20:47 Urine Protein 100 mg/dL (Negative) H 06/25/19 20:47 Urine Ketones Negative mg/dL (Negative) 06/25/19 20:47 Urine Blood Negative (Negative) 06/25/19 20:47 Urine Nitrite Negative (Negative) 06/25/19 20:47 Urine Bilirubin Negative (Negative) 06/25/19 20:47 Urine Urobilinogen 0.2 EU/dL (Up TO 0.2) 06/25/19 20:47 Ur Leukocyte Esterase Negative (Negative) 06/25/19 20:47 Urine RBC Negative HPF (0-2) 06/25/19 20:47 Urine WBC 5-10 HPF (0-5) 06/25/19 20:47 Ur Epithelial Cells Few HPF (Negative) 06/25/19 20:47 Urine Crystals Moderate amorphous HPF (Negative) 06/25/19 20:47 Urine Bacteria Not Applicable 06/25/19 20:47 Urine Casts 20-50 fine granular LPF (Negative) 06/25/19 20:47 Urine Mucus Negative (Negative) 06/25/19 20:47 Ur Culture Indicated? Yes 06/25/19 20:47 Urine Glucose Negative mg/dL (Negative) 06/25/19 20:47 Patient ABO/Rh O Positive 06/25/19 10:50 Antibody Screen Negative 06/25/19 10:50 Crossmatch See Detail 06/25/19 10:50
[2019-06-27 00:22] VITALS: BP 126/73; PULSE 72; RESP 20; TEMP 37.4; O2SAT 94
[2019-06-27 00:33] VITALS: BP 151/67; PULSE 77; RESP 20; TEMP 37.3; O2SAT 92
[2019-06-27] MEDS: Furosemide 40 MG/4 ML VIAL IVP (00:47)
[2019-06-27] MEDS: Normal Saline 1,000 ML 125 ML IV ×2 (00:47→08:51)
--- NOTE | 2019-06-27 01:05 | NUR.NOTE ---
Patient has completed 2 units of RBCS successfully without any adverse reactions. Stat dose of Lasix was ordered and administered upon completion. Pt vitals remains stable. Urine catheter was inserted as ordered by Doctor. Patient now sleeping comfortable in no cardio-pulmonary distress.
[2019-06-27 01:16] VITALS: RESP 20; O2SAT 94
[2019-06-27 03:50] VITALS: BP 166/78; PULSE 66; RESP 20; TEMP 37.3; O2SAT 92
[2019-06-27] MEDS: ACETAMINOPHEN 1,000 MG/100 ML BTL 400 MG IVPB (03:59)
[2019-06-27] MEDS: PIPERACILLIN/TAZO 2.25 GM in Normal Saline 50 ML IVPB ×2 (04:00→09:42)
[2019-06-27] MEDS: Normal Saline Flush 10 ML SYR IVP (04:00)
[2019-06-27] MEDS: Levothyroxine 75 MCG TAB PO (05:47)
[2019-06-27 07:03] LABS: Abs Immature Grans 0.04 k/cumm (0.0-0.09); Absolute Basophil Count 0.01 k/cumm (0.0-0.2); Absolute Eosinophil Count 0.05 k/cumm (0.0-0.7); Absolute Lymphocyte Count 1.09 k/cumm (1.2-3.4); Absolute Monocyte Count 0.97 k/cumm (0.11-0.7); Absolute Neutrophil Count 8.03 k/cumm (1.2-6.7); Basophils % 0.1; Eosinophils % 0.5; HCT 29.8 % (36.0-46.0); Immature Grans % 0.4; Lymphocytes % 10.7; Mean Corp. HGB Concentration 30.2 g/dL (32.0-36.0); Mean Corpuscular Hemoglobin 27.8 pg (27.0-33.0); Mean Platelet Volume 8.9 fL (8.0-11.0); Monocytes % 9.5; Neutrophils % 78.8; Platelet Count 285 x1000/uL (130-400); RBC 3.24 m/cumm (4.00-5.20); RBC Distribution Width 16.8 % (11.7-14.6); White Blood Cell Count 10.19 k/cumm (4.4-10.8)
[2019-06-27 07:05] LABS: INR 1.2 (0.9-1.1); Prothrombin Time 12.4 sec (9.3-11.0)
[2019-06-27 07:07] LABS: ALT 14 U/L (14-59); AST 12 U/L (15-37); Alkaline Phosphatase 114 U/L (46-116); Anion Gap 9.8 mmol/L (3-11); BUN 32 mg/dL (7-18); Bilirubin, Total 1.6 mg/dL (0.2-1.0); CO2 26.2 mmol/L (21.0-32.0); CREATININE 1.93 mg/dL (0.55-1.02); Chloride 110 mmol/L (98-107); Estimated GFR 24.79 (mL/min/1.73m2); Glucose 104 mg/dL (74-106); Magnesium 1.9 mg/dL (1.8-2.4); Potassium 3.6 mmol/L (3.5-5.1); Sodium 146 mmol/L (136-145); Total Protein 5.8 g/dL (6.4-8.2)
[2019-06-27] MEDS: HYDROmorphone 2 MG/ML VIAL 0.5 MG IVP (07:23)
[2019-06-27 07:45] VITALS: BP 113/68; PULSE 67; RESP 16; TEMP 37.5; O2SAT 95
[2019-06-27] MEDS: MORPHine 2 MG/ML SYR IVP ×2 (08:21→13:02)
[2019-06-27] MEDS: Losartan 50 MG TAB 100 MG PO (08:57)
--- NOTE | 2019-06-27 10:06 | CMPROGNOTE_ITS ---
- If Service Date Differs Date of service: 06/27/19 Time of Service: 10:06 Care Management Progress Note S/O: Ijeoma remains in acute status. Her and children are present in the room when comes to meet with her. She reports her pain as a 50 on a scale of 1 to 10. Ijeoma is being [facility] to [facility] ([facility] [place] for further assessment and treatment. A: 84 year old female admitted to [facility] on 06/25/2019 for acute radha. P: Patient is transferred to [facility] [place]. Family is present at the hospital at the time of transfer. Transport by ambulance is coordinated by nursing supervisor hardboard.
--- NOTE | 2019-06-27 10:06 | PDOC.CMPRO ---
- If Service Date Differs Date of service: 06/27/19 Time of Service: 10:06 Care Management Progress Note S/O: Ijeoma remains in acute status. Her and children are present in the room when comes to meet with her. She reports her pain as a 50 on a scale of 1 to 10. Ijeoma is being transferred to [facility] ([facility] [place]) for further assessment and treatment. A: 84 year old female admitted to [facility] on 06/25/2019 for acute radha. P: Patient is transferred to [facility] [place]. Family is present at the hospital at the time of transfer. Transport by ambulance is coordinated by nursing supervisor refining.
--- NOTE | 2019-06-27 10:48 | PT.INNT ---
Date of service: 06/27/19 Time of Service: 10:51 PT Notes Visit Reasons: ACUTE JS Referral for physical therapy services came through at 21:28 PM on 06/26/2019 to address weakness and high fall risk. Conversation with nurse revealed that patient has been in a lot of pain overnight and has been very weak. She has just had significant relief within the last hour and is trying to take a nap. Nurse Bernal requested to hold off on mobilizing patient for PT evaluation and suggested revisiting patient tomorrow for another attempt at consult. Per nurse Bernal, there is a possibility of patient being sent to [facility] [place] for further medical management if symptoms are not mitigated. Will plan on conducting PT assessment tomorrow morning, as ordered. Thank you very much for this referral. Sissy cMcallum PT, DPT, CLT [facility]
--- NOTE | 2019-06-27 11:31 | PGE_ITS ---
Date of Service Date of service: 06/27/19 Time of Service: 11:31 Assessment and Plan Assessment and plan (1) Mass of left lung: Status: Acute Assessment and plan: ultimately pt will prob require lung BX. this is outpt work-up (2) Cholelithiasis with acute on chronic cholecystitis: Status: Acute Assessment and plan: has been on abx for 48hrs. WBC is nl. 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 Still continues to have pain in RUQ and can't eat. anesthesia does not feel she is acceptable candidate for sx at [facility]. d/w [facility] and accepted in transfer. preparations being made for transfer (3) Diabetes mellitus, type II: Status: Chronic Assessment and plan: stable (4) Obesity: Status: Chronic (5) Hypothyroidism: Status: Chronic Assessment and plan: stable (6) Hypertension: Status: Chronic Assessment and plan: stable (7) CKD (chronic kidney disease): Status: Chronic Assessment and plan: stable no UTI (8) Glaucoma: Status: Chronic (9) Stage II pressure sore: Status: Acute Assessment and plan: mepilex also yeast in groin (10) Atrial fibrillation: Status: Chronic Assessment and plan: stable adn rate controlled. was on coumadin INR 1.2 (11) Cerebellar ataxia: Status: Chronic (12) Pulmonary embolism: Status: Chronic Assessment and plan: 5yrs ago (13) Chronic anemia: Status: Acute Assessment and plan: hgb 9.0 today chronic anemia since shoulder surgery 2 PRBC and IV iron on 06/27 Subjective Subjective Interval history since last seen: pt still having lots of pain last pm. no n/v. no stools. no signs of active bleeding. no cp or sob. can't eat anything substantial. family would like her [place] [facility] [place] She did develope a bedsore while she was in rehab. Pt will stand and pivot only. She does have a lainez in now b/c she couldn't even get up to go to the bathroom. She still has RUQ pain. no diffuse abdominal pain. no n/v. can't eat. Exam Const General: cooperative, healthy appearing, comfortable, no acute distress, well developed and well groomed Nutritional Appearance: average body habitus and well nourished Orientation: alert, awake and oriented x3 HENMT Head: normal to inspection, normocephalic and atraumatic Ears: hearing grossly normal bilaterally and external ears normal General nose exam: external nose normal Face and sinus: normal facial exam and sinuses nontender Mouth: oral mucosae normal, lip abnormal, tongue normal, moist mucous membranes and other Teeth and gingiva: dentition normal Other: pt fell asleep w/ her dentures in last pm and chewed on her lips during the night and macerated lips. Eyes General: appearance normal, both eyes and all related structures Conjunctivae: conjunctivae normal Sclera: sclerae normal Pupils: PERRL Neck Neck: normal visual inspection and full ROM Chest Chest: normal inspection of the chest Resp Effort & Inspection: normal respiratory effort, able to speak in complete sentences, audible wheezes, no cough, no nasal flaring, not tachypneic and no use of accessory muscles Auscultation: clear to auscultation bilaterally, no rales, no rhonchi and no wheezes Cardio Jugular venous pressure: no JVD Rate: regular rate Rhythm: regular rhythm GI Inspection: normal to inspection, no edema and non-distended Palpation: soft, no masses, nontender and No ascites Auscultation: normal bowel sounds Other: RUQ pain. obese. otherwise soft. obese. internal organs and hernias are not palpable. BS present but hypoactive. no diffuse peritonitis Skin General skin exam: crusts and dry skin Other: 1cm pressure ulcer reddened indurated- from being in rehab for shoulder Neuro General: alert, oriented x3, oriented and CN's II-XI intact bilaterally Cognition: normal cognition Speech: speech normal Gait: normal gait Motor: other (very week and deconditoned. can't stand ) Extrem General: no clubbing, cyanosis or edema Other: non ambulatory post sx changes L shoulder. she cannot wt bare on the arm Psych Appearance: grossly normal and well kempt Mental Status: mental status grossly normal Speech and Movement: speech and movement normal Affect: normal affect Objective Objective Clinical Data: Abnormal lab results 06/25/19 06/26/19 06/27/19 Range/Units 10:50 06:45 06:25 RBC (4.00-5.20) m/cumm Hgb (12.0-15.5) g/dL Hct (36.0-46.0) % MCHC (32.0-36.0) g/dL RDW (11.7-14.6) % Absolute Neutrophils (1.2-6.7) k/cumm Absolute Lymphocytes (1.2-3.4) k/cumm Absolute Monocytes (0.11-0.7) k/cumm PT (9.3-11.0) sec INR (0.9-1.1) Sodium 146 H (136-145) mmol/L Chloride 110 H (98-107) mmol/L BUN 32 H (7-18) mg/dL Creatinine 1.93 H (0.55-1.02) mg/dL Calcium 8.0 L (8.5-10.1) mg/dL Total Bilirubin 1.6 H (0.2-1.0) mg/dL AST 12 L (15-37) U/L Total Protein 5.8 L (6.4-8.2) g/dL Albumin 2.0 L (3.4-5.0) g/dL Amylase 24 L (25-115) U/L Crossmatch See Detail 06/27/19 06/27/19 Range/Units 06:25 06:25 RBC 3.24 L (4.00-5.20) m/cumm Hgb 9.0 L (12.0-15.5) g/dL Hct 29.8 L (36.0-46.0) % MCHC 30.2 L (32.0-36.0) g/dL RDW 16.8 H (11.7-14.6) % Absolute Neutrophils 8.03 H (1.2-6.7) k/cumm Absolute Lymphocytes 1.09 L (1.2-3.4) k/cumm Absolute Monocytes 0.97 H (0.11-0.7) k/cumm PT 12.4 H (9.3-11.0) sec INR 1.2 H (0.9-1.1) Sodium (136-145) mmol/L Chloride (98-107) mmol/L BUN (7-18) mg/dL Creatinine (0.55-1.02) mg/dL Calcium (8.5-10.1) mg/dL Total Bilirubin (0.2-1.0) mg/dL AST (15-37) U/L Total Protein (6.4-8.2) g/dL Albumin (3.4-5.0) g/dL Amylase (25-115) U/L Crossmatch Vital Signs Temperature 37.5 C 06/27/19 07:45 Temperature Source Tympanic 06/27/19 07:45 Pulse 67 06/27/19 07:45 Pulse Rhythm Regular 06/27/19 01:15 Pulse 81 06/25/19 22:47 Respiratory Rate 16 06/27/19 07:45 Respiratory Effort Non-Labored 06/27/19 01:15 Respiratory Depth Deep 06/27/19 01:15 Respiratory Pattern Normal 06/27/19 01:15 Blood Pressure 113/68 06/27/19 07:45 Blood Pressure Mean 101 06/25/19 22:47 Blood Pressure Position Supine 06/25/19 20:21 Pulse Oximetry 95 06/27/19 07:45 Oxygen Delivery Method Room Air 06/27/19 07:45 Oxygen Flow Rate 0 06/27/19 07:45 Pain Level 7 06/27/19 08:23 Comment 06/26/19 23:34 Intake & Output 06/26/19 06/26/19 06/27/19 11:59 23:59 11:59 Intake Total 1350 / 2769.167 1419.167 / 2769.167 1560 / 1560 Output Total 300 / 500 200 / 500 850 / 850 Balance 1050 / 2269.167 1219.167 / 2269.167 710 / 710 Intake: IV 1100 / 1479.167 379.167 / 5700.994 0448 / 1310 Oral 790 / 790 Blood Product 250 / 500 250 / 500 250 / 250 Frozen Plasma Unit 250 / 500 250 / 500 [id number] Rbc Leuko Reduced Unit 250 / 250 [id number] Rbc Leuko Reduced Unit 0 / 0 [id number] Output: Urine 300 / 500 200 / 500 850 / 850 Other: Urine Color Straw Pale Light Deya Light Deya Yellow Urine Appearance Sediment Clear Cloudy Sediment Urine Odor Normal Voiding Methods Bedside Commode Laboratory Results WBC 10.19 k/cumm (4.4-10.8) 06/27/19 06:25 RBC 3.24 m/cumm (4.00-5.20) L 06/27/19 06:25 Hgb 9.0 g/dL (12.0-15.5) L 06/27/19 06:25 Hct 29.8 % (36.0-46.0) L 06/27/19 06:25 MCV 92.0 fL (80-95) 06/27/19 06:25 MCH 27.8 pg (27.0-33.0) 06/27/19 06:25 MCHC 30.2 g/dL (32.0-36.0) L 06/27/19 06:25 RDW 16.8 % (11.7-14.6) H 06/27/19 06:25 Plt Count 285 x1000/uL (130-400) 06/27/19 06:25 MPV 8.9 fL (8.0-11.0) 06/27/19 06:25 Immature Gran % 0.4 06/27/19 06:25 Neutrophils % 78.8 06/27/19 06:25 Lymphocytes % 10.7 06/27/19 06:25 Monocytes % 9.5 06/27/19 06:25 Eosinophils % 0.5 06/27/19 06:25 Basophils % 0.1 06/27/19 06:25 Absolute Neutrophils 8.03 k/cumm (1.2-6.7) H 06/27/19 06:25 Absolute Lymphocytes 1.09 k/cumm (1.2-3.4) L 06/27/19 06:25 Absolute Monocytes 0.97 k/cumm (0.11-0.7) H 06/27/19 06:25 Absolute Eosinophils 0.05 k/cumm (0.0-0.7) 06/27/19 06:25 Absolute Basophils 0.01 k/cumm (0.0-0.2) 06/27/19 06:25 Retic Count 1.5 % (0.5-2.4) 06/26/19 06:45 PT 12.4 sec (9.3-11.0) H 06/27/19 06:25 INR 1.2 (0.9-1.1) H 06/27/19 06:25 APTT 40.8 sec (21.0-31.4) H 06/26/19 06:45 Sodium 146 mmol/L (136-145) H 06/27/19 06:25 Potassium 3.6 mmol/L (3.5-5.1) 06/27/19 06:25 Chloride 110 mmol/L (98-107) H 06/27/19 06:25 Carbon Dioxide 26.2 mmol/L (21.0-32.0) 06/27/19 06:25 Anion Gap 9.8 mmol/L (3-11) 06/27/19 06:25 BUN 32 mg/dL (7-18) H 06/27/19 06:25 Creatinine 1.93 mg/dL (0.55-1.02) H 06/27/19 06:25 Estimated GFR/1.73 m2 24.79 (mL/min/1.73m2) 06/27/19 06:25 Glucose 104 mg/dL (74-106) 06/27/19 06:25 Lactate 1.0 mmol/L (0.6-1.4) 06/25/19 20:40 Calcium 8.0 mg/dL (8.5-10.1) L 06/27/19 06:25 Magnesium 1.9 mg/dL (1.8-2.4) 06/27/19 06:25 Iron 13 ug/dL (50-170) L 06/26/19 06:45 TIBC 130 ug/dL (250-450) L 06/26/19 06:45 Transferrin % Sat 10 % (15-50) L 06/26/19 06:45 Total Bilirubin 1.6 mg/dL (0.2-1.0) H 06/27/19 06:25 AST 12 U/L (15-37) L 06/27/19 06:25 ALT 14 U/L (14-59) 06/27/19 06:25 Alkaline Phosphatase 114 U/L (46-116) 06/27/19 06:25 Troponin I < 0.05 ng/Ml (<0.06) 06/25/19 20:40 Total Protein 5.8 g/dL (6.4-8.2) L 06/27/19 06:25 Albumin 2.0 g/dL (3.4-5.0) L 06/27/19 06:25 Amylase 24 U/L (25-115) L 06/26/19 06:45 Lipase 76 U/L (73-393) 06/26/19 06:45 Urine Color Yellow (Yellow) 06/25/19 20:47 Urine Clarity Clear (Clear) 06/25/19 20:47 Urine pH 5.5 (5-8) 06/25/19 20:47 Ur Specific Icard 1.020 (1.005-1.025) 06/25/19 20:47 Urine Protein 100 mg/dL (Negative) H 06/25/19 20:47 Urine Ketones Negative mg/dL (Negative) 06/25/19 20:47 Urine Blood Negative (Negative) 06/25/19 20:47 Urine Nitrite Negative (Negative) 06/25/19 20:47 Urine Bilirubin Negative (Negative) 06/25/19 20:47 Urine Urobilinogen 0.2 EU/dL (Up TO 0.2) 06/25/19 20:47 Ur Leukocyte Esterase Negative (Negative) 06/25/19 20:47 Urine RBC Negative HPF (0-2) 06/25/19 20:47 Urine WBC 5-10 HPF (0-5) 06/25/19 20:47 Ur Epithelial Cells Few HPF (Negative) 06/25/19 20:47 Urine Crystals Moderate amorphous HPF (Negative) 06/25/19 20:47 Urine Bacteria Not Applicable 06/25/19 20:47 Urine Casts 20-50 fine granular LPF (Negative) 06/25/19 20:47 Urine Mucus Negative (Negative) 06/25/19 20:47 Ur Culture Indicated? Yes 06/25/19 20:47 Urine Glucose Negative mg/dL (Negative) 06/25/19 20:47 Patient ABO/Rh O Positive 06/25/19 10:50 Antibody Screen Negative 06/25/19 10:50 Crossmatch See Detail 06/25/19 10:50
--- NOTE | 2019-06-27 12:31 | W.PM.DS.N ---
Date of service: 06/27/19 Time of Service: 12:31 DS: Diagnosis Discharge Diagnosis (1) Mass of left lung: Status: Acute (2) Cholelithiasis with acute on chronic cholecystitis: Status: Acute (3) Diabetes mellitus, type II: Status: Chronic (4) Obesity: Status: Chronic (5) Hypothyroidism: Status: Chronic (6) Hypertension: Status: Chronic (7) CKD (chronic kidney disease): Status: Chronic (8) Glaucoma: Status: Chronic (9) Stage II pressure sore: Status: Acute Discharge Plan Disposition Patient Disposition: [facility] Condition: Poor Discharge Details Chief Complaint: GenMedical Clinical Impression: Acute cholecystitis Reason For Visit: ACUTE JS Admit Date/Time: 06/25/19 22:19 Admit Provider: Supriya Coles Attending Provider: Supriya Coles Primary Care Provider: Cassandra Wilson V ED Provider: Mauricio Starr [facility] Course Hospital Course: pt admitted 06/25 through ED. Pt was visiting and is not a [facility] pt and we have no records on her, other than labwork. -Pt fell at home in October- resulting in an injury to the left shoulder. She has not walked since the fall. She barely stands to transfer. was talking care of her at home by himself. (She could not stand to transfer last pm- and lainez cath was placed). This resulted in shoulder replacement at [facility] in apr 2019. She was in [facility] rehab for 2 wks in May . She says [facility] did not do any cardiac workup- (no stress test or echo) prior to sx in [place]. Unclear if she had GETA or Block of some type prior for shoulder sx. She still cannot bare any weight on left arm. -Prior to the shoulder surgery her hgb was normal. She was in the 9's the whole month of May, while she was in rehab. She was 8.5 yesterday and very SOB. She received 2 untis PRBC 06/26 and 200mg of IV Iron, and hgb onyl came up to 9.0 on 06/27. I don't' know if this is an erroneous lab draw, or some type of hemolysis process. She show no signs of GI bleed/blood loss or active bleeding. -She is not on home O2 at home. She has been very SOB adn was started on O2 on the hosp. her CXR nad lungs on auscultation are clear. She does appear to have a hard time breathing (transfusion did not improve this). She does have a hx of PE 5 yrs ago. She is also in A. fib. She was on coumadin when she came in. She did receive Vit K and one unit of FFP in consideration of poss lap js. INR 1.2 today. -Anesthesia at [facility] does not think she is an acceptable risk for surgery here. -When she was admitted on 06/25- she did had been ill for about 5 days prior to coming into the hosp- w/ RUQ pain and n/v and diarrhea. She had not been able to eat. She has a 2.4cm gallstone in the neck of the GB. She had pericholecystic fluid and GB wall thickening on CT scan. Her LFT's were nl. She had a WBC of 14. WBC is nl today and no temps. She has been on Zosyn for 48hrs know w/ no improvement in pain. She still requires IV narcs for pain and can't eat anything substantial. The diarrhea is improved as well- but she is not eating. -She developed a stage II decub ulcer on buttocks while in rehab. -She was incidentally found to have a 1.5cm mass in the AYLIN lung. She is not a smoker- but was. -poor IV access Home Meds and New Rx's Prescriptions: No Action furosemide 40 MG tablet 40 mg PO DAILY RF: 0 gabapentin [Neurontin] 600 MG tablet 600 mg PO TID RF: 0 nystatin [Nystop] 60 GM powder 1 applic Topical .QOD PRNRF: 0 glucosamine villanueva 2KCl-chondroit 1 EACH tablet 2 tab PO DAILY RF: 0 cholecalciferol (vitamin D3) 1,000 UNITS tablet 1 tab PO DAILY RF: 0 warfarin [Coumadin] 2.5 MG tablet 0 mg PO QPM Qty: 50 RF: 0 losartan 100 MG tablet 100 mg PO QAM Qty: 1 RF: 0 hydrocodone-acetaminophen [Vicodin] 1 EACH tablet 1 ea PO BID PRNQty: 2 RF: 0 levothyroxine [Synthroid] 75 MCG tablet 75 mcg PO DAILY Qty: 1 RF: 0 Discharge Instructions Activity:: bed bound Diet:: cl liq DS: Summary Status at Discharge Functional status at discharge: bed bound Overall status at discharge: patient is not back to baseline Mental Status: mental status grossly normal Speech and Movement: speech and movement normal Mood: congruent mood and anxious mood Affect: normal affect and sad Exam Psych Mental Status: mental status grossly normal Speech and Movement: speech and movement normal Mood: congruent mood and anxious mood Affect: normal affect and sad DS: Data Vitals/I&O Vitals and I&O: Vital Signs Temperature 37.5 C 06/27/19 07:45 Temperature Source Tympanic 06/27/19 07:45 Pulse 67 06/27/19 07:45 Pulse Rhythm Regular 06/27/19 01:15 Pulse 81 06/25/19 22:47 Respiratory Rate 16 06/27/19 07:45 Respiratory Effort Non-Labored 06/27/19 01:15 Respiratory Depth Deep 06/27/19 01:15 Respiratory Pattern Normal 06/27/19 01:15 Blood Pressure 113/68 06/27/19 07:45 Blood Pressure Mean 101 06/25/19 22:47 Blood Pressure Position Supine 06/25/19 20:21 Pulse Oximetry 95 06/27/19 07:45 Oxygen Delivery Method Room Air 06/27/19 07:45 Oxygen Flow Rate 0 06/27/19 07:45 Pain Level 7 06/27/19 08:23 Comment 06/26/19 23:34 Intake & Output 06/26/19 06/27/19 06/27/19 23:59 11:59 23:59 Intake Total 1419.167 / 2769.167 1560 / 1560 Output Total 200 / 500 850 / 850 Balance 1219.167 / 2269.167 710 / 710 Intake: IV 379.167 / 9113.537 6423 / 1310 Oral 790 / 790 Blood Product 250 / 500 250 / 250 Frozen Plasma Unit 250 / 500 [id number] Rbc Leuko Reduced Unit 250 / 250 [id number]* Rbc Leuko Reduced Unit 0 / 0 [id number] Output: Urine 200 / 500 850 / 850 Other: Urine Color Pale Light Deya Yellow Urine Appearance Clear Cloudy Sediment Data Completed and Pending Labs on day of discharge: Labs from last 24 hours 06/27/19 06/27/19 06/27/19 06:25 06:25 06:25 WBC 10.19 RBC 3.24 L Hgb 9.0 L Hct 29.8 L MCV 92.0 MCH 27.8 MCHC 30.2 L RDW 16.8 H Plt Count 285 MPV 8.9 Immature Gran % 0.4 Neutrophils % 78.8 Lymphocytes % 10.7 Monocytes % 9.5 Eosinophils % 0.5 Basophils % 0.1 Absolute Neutrophils 8.03 H Absolute Lymphocytes 1.09 L Absolute Monocytes 0.97 H Absolute Eosinophils 0.05 Absolute Basophils 0.01 PT 12.4 H INR 1.2 H Sodium 146 H Potassium 3.6 Chloride 110 H Carbon Dioxide 26.2 Anion Gap 9.8 BUN 32 H Creatinine 1.93 H Estimated GFR/1.73 m2 24.79 Glucose 104 Calcium 8.0 L Magnesium 1.9 Total Bilirubin 1.6 H AST 12 L ALT 14 Alkaline Phosphatase 114 Total Protein 5.8 L Albumin 2.0 L Patient ABO/Rh Antibody Screen Crossmatch 06/25/19 10:50 WBC RBC Hgb Hct MCV MCH MCHC RDW Plt Count MPV Immature Gran % Neutrophils % Lymphocytes % Monocytes % Eosinophils % Basophils % Absolute Neutrophils Absolute Lymphocytes Absolute Monocytes Absolute Eosinophils Absolute Basophils PT INR Sodium Potassium Chloride Carbon Dioxide Anion Gap BUN Creatinine Estimated GFR/1.73 m2 Glucose Calcium Magnesium Total Bilirubin AST ALT Alkaline Phosphatase Total Protein Albumin Patient ABO/Rh O Positive Antibody Screen Negative Crossmatch See Detail [facility] Medical History Acute cholecystitis due to biliary calculus (Acute) Atrial fibrillation (Chronic) Cholelithiasis with acute on chronic cholecystitis (Acute) Chronic anemia (Acute) CKD (chronic kidney disease) (Chronic) a. baseline creatinine 1.4 to 1.5 Diabetes mellitus, type II (Chronic) Glaucoma (Chronic) Hypertension (Chronic) Hypothyroidism (Chronic) Mass of left lung (Acute) Melanoma (Inactive) Obesity (Chronic) Pulmonary embolism (Chronic) Spinal stenosis (Chronic) Stage II pressure sore (Acute) Surgical History S/P hysterectomy (Inactive) Status post total shoulder replacement (Chronic) Social History Smoking/Tobacco Use Status: Never Alcohol Intake: never Drug use: Never Substance use type: does not use Do you feel safe at home: Yes Do you feel safe in your relationship?: Yes
--- NOTE | 2019-06-28 11:33 | NT_ITS ---
Date of service: 06/28/19 Time of Service: 11:33 PT Notes Visit Reasons: ACUTE JS Patient was transferred to [facility] on 06/27/2019 for further medical assessment and management. Thank you very much for this referral. Sissy Mccallum PT, DPT, CLT [facility]
== END 2019-06-27 13:35 | disposition short-term general hospital (02) | DRG 445 ==
LOC: ER 22:33 → MS 23:22
PROVIDERS: Admitting Provider Surgery; Emergency Provider Emergency Medicine; PCP Family Medicine; Visit Provider Surgery
DX: K80.12 Calculus of gallbladder with acute and chronic cholecystitis without obstruction (principal); G11.9 Hereditary ataxia, unspecified; Z68.41 Body mass index [BMI] 40.0-44.9, adult; D64.9 Anemia, unspecified; R06.02 Shortness of breath; R19.7 Diarrhea, unspecified; R10.11 Right upper quadrant pain; Z86.711 Personal history of pulmonary embolism; L89.312 Pressure ulcer of right buttock, stage 2; I48.91 Unspecified atrial fibrillation; Z79.01 Long term (current) use of anticoagulants; R91.8 Other nonspecific abnormal finding of lung field; Z77.22 Contact with and (suspected) exposure to environmental tobacco smoke (acute) (chronic); R53.1 Weakness; B37.2 Candidiasis of skin and nail; M48.00 Spinal stenosis, site unspecified; H40.9 Unspecified glaucoma; E11.22 Type 2 diabetes mellitus with diabetic chronic kidney disease; N18.9 Chronic kidney disease, unspecified; I12.9 Hypertensive chronic kidney disease with stage 1 through stage 4 chronic kidney disease, or unspecified chronic kidney disease; E03.9 Hypothyroidism, unspecified; E66.9 Obesity, unspecified; Z67.40 Type O blood, Rh positive
CPT/HCPCS: 36415; 71250; 80053; 83690; 86850; 86900; 86901; 86920; 93005; 96361; 96365; 96367; 96375; 99223; 99232; 99233; 99239; 99285; 74176; 81003; 81015; 82150; 83540; 83550; 83605; 83735; 84484; 85025; 85045; 85610; 85730; 87086; 93010; J0131; J1756; J1940; J2270; J2543; L3650; P9016; P9059

== ENCOUNTER 2019-09-11 11:46 | Outpatient (REF) | payer MEDICARE, SELFPAY ==
[2019-09-11 12:43] LABS: Abs Immature Grans 0.01 k/cumm (0.0-0.09); Absolute Basophil Count 0.02 k/cumm (0.0-0.2); Absolute Lymphocyte Count 1.77 k/cumm (1.2-3.4); Absolute Monocyte Count 0.49 k/cumm (0.11-0.7); Absolute Neutrophil Count 4.19 k/cumm (1.2-6.7); Basophils % 0.3; Eosinophils % 4.4; HCT 34.8 % (36.0-46.0); HGB 10.4 g/dL (12.0-15.5); Immature Grans % 0.1 %; Lymphocytes % 26.1; Mean Corp. HGB Concentration 29.9 g/dL (32.0-36.0); Mean Corpuscular Hemoglobin 26.7 pg (27.0-33.0); Mean Corpuscular Volume 89.5 fL (80-95); Mean Platelet Volume 9.4 fL (8.0-11.0); Monocytes % 7.2; Neutrophils % 61.9; Platelet Count 342 x1000/uL (130-400); RBC 3.89 m/cumm (4.00-5.20); White Blood Cell Count 6.78 k/cumm (4.4-10.8)
[2019-09-11 12:53] LABS: ALT 16 U/L (14-59); AST 14 U/L (15-37); Albumin 3.2 g/dL (3.4-5.0); Alkaline Phosphatase 109 U/L (46-116); Anion Gap 10.1 mmol/L (3-11); BUN 36 mg/dL (7-18); Bilirubin, Total 0.2 mg/dL (0.2-1.0); CO2 27.9 mmol/L (21.0-32.0); CREATININE 1.63 mg/dL (0.55-1.02); Calcium 8.3 mg/dL (8.5-10.1); Chloride 108 mmol/L (98-107); Estimated GFR 30.13 (mL/min/1.73m2); Glucose 98 mg/dL (74-106); NT-proBNP 408 pg/mL (<300); Potassium 4.7 mmol/L (3.5-5.1); Sodium 146 mmol/L (136-145); Total Protein 6.2 g/dL (6.4-8.2)
[2019-09-11 14:46] LABS: Hemoglobin A1C 6.3 % (3.8-5.6)
== END 2019-09-11 12:06 ==
LOC: LBN 11:46
PROVIDERS: PCP Family Medicine; Visit Provider Family Medicine
DX: E11.40 Type 2 diabetes mellitus with diabetic neuropathy, unspecified (principal); R06.02 Shortness of breath; N18.9 Chronic kidney disease, unspecified
CPT/HCPCS: 80053; 83036; 83880; 85025

== ENCOUNTER 2020-02-05 08:47 | Outpatient (REF) | payer MEDICARE, SELFPAY ==
[2020-02-05 19:16] LABS: HCT 35.3 % (36.0-46.0); HGB 10.3 g/dL (12.0-15.5)
[2020-02-05 19:26] LABS: Anion Gap 7.7 mmol/L (3-11); BUN 51 mg/dL (7-18); CO2 28.3 mmol/L (21.0-32.0); CREATININE 1.95 mg/dL (0.55-1.02); Calcium 8.3 mg/dL (8.5-10.1); Chloride 108 mmol/L (98-107); Glucose 178 mg/dL (74-106); Potassium 4.6 mmol/L (3.5-5.1); Sodium 144 mmol/L (136-145); TSH (W/Ref FT4) 3.46 uIU/mL (0.36-3.74)
[2020-02-05 19:46] LABS: NT-proBNP 1269 pg/mL (<300)
[2020-02-05 20:19] LABS: Hemoglobin A1C 6.6 % (3.8-5.6)
== END 2020-02-05 09:07 ==
LOC: NCHCN 08:47
PROVIDERS: PCP Family Medicine; Visit Provider Family Medicine
DX: E03.9 Hypothyroidism, unspecified (principal); E11.9 Type 2 diabetes mellitus without complications; I50.9 Heart failure, unspecified; R60.0 Localized edema; Z87.19 Personal history of other diseases of the digestive system
CPT/HCPCS: 80048; 83036; 83880; 84443; 85014; 85018

== ENCOUNTER 2020-03-11 12:57 | Outpatient (REF) | payer MEDICARE, SELFPAY ==
[2020-03-11 19:23] LABS: HGB 11.2 g/dL (11.2-15.7)
[2020-03-11 19:49] LABS: Anion Gap 5.4 mmol/L (3-11); BUN 60 mg/dL (7-18); CO2 30.6 mmol/L (21.0-32.0); CREATININE 1.85 mg/dL (0.55-1.02); Calcium 8.6 mg/dL (8.5-10.1); Chloride 109 mmol/L (98-107); Estimated GFR 25.97 (mL/min/1.73m2); Glucose 151 mg/dL (74-106); NT-proBNP 2043 pg/mL (<300); Potassium 5.7 mmol/L (3.5-5.1); Sodium 145 mmol/L (136-145)
== END 2020-03-11 13:17 ==
LOC: NCHCN 12:57
PROVIDERS: PCP Family Medicine; Visit Provider Family Medicine
DX: R06.02 Shortness of breath (principal); I48.91 Unspecified atrial fibrillation; R60.0 Localized edema; Z87.19 Personal history of other diseases of the digestive system
CPT/HCPCS: 80048; 83880; 85014; 85018

== ENCOUNTER 2020-04-25 11:10 | Outpatient (REF) | payer MEDICARE, SELFPAY ==
[2020-04-25 12:07] LABS: HCT 34.9 % (36.0-46.0); HGB 10.5 g/dL (11.2-15.7); MCH 26.2 pg (27.0-33.0); MCHC 30.1 % (32.0-36.0); MPV 9.6 fL (8.0-11.0); Platelet Count 269 10^3/uL (130-400); RBC 4.01 10^6/uL (3.93-5.22); RDW 16.5 % (11.7-14.6); RDW-SD 52.3 fL; WBC 8.38 10^3/uL (4.4-10.8)
[2020-04-25 12:27] LABS: C-Reactive Protein 1.34 mg/dL (0.0-0.3); Uric Acid 8.1 mg/dL (2.6-6.0)
[2020-04-25 13:19] LABS: ESR 56 mm/hr (0-30)
== END 2020-04-25 11:30 ==
LOC: NCHCN 11:10
PROVIDERS: PCP Family Medicine; Visit Provider Family Medicine
DX: E11.40 Type 2 diabetes mellitus with diabetic neuropathy, unspecified (principal); R79.82 Elevated C-reactive protein (CRP); E03.9 Hypothyroidism, unspecified; I48.91 Unspecified atrial fibrillation
CPT/HCPCS: 85027; 85652; 84550; 86140

== ENCOUNTER 2021-01-02 09:02 | Outpatient (CLI) | payer MEDICARE, SELFPAY ==
[2021-01-02 10:27] LABS: Prothrombin Time 57.2 sec (9.3-11.0)
== END 2021-01-02 09:03 | disposition home or self-care (01) ==
LOC: LBO 09:07
PROVIDERS: PCP Family Medicine; Visit Provider Physician Assistant Medical
DX: I48.91 Unspecified atrial fibrillation (principal); Z79.01 Long term (current) use of anticoagulants
CPT/HCPCS: 36415; 85610

== ENCOUNTER 2021-02-10 10:09 | Outpatient (REF) | payer MEDICARE, SELFPAY ==
[2021-02-10 14:03] LABS: HCT 38.7 % (36.0-46.0); HGB 11.4 g/dL (11.2-15.7); MCHC 29.5 % (32.0-36.0); MCV 91.7 fL (80-95); MPV 9.8 fL (8.0-11.0); Platelet Count 258 10^3/uL (130-400); RBC 4.22 10^6/uL (3.93-5.22); RDW 16.5 % (11.7-14.6); WBC 9.03 10^3/uL (4.4-10.8)
[2021-02-10 14:51] LABS: ALT 26 U/L (14-59); AST 14 U/L (15-37); Albumin 3.1 g/dL (3.4-5.0); Alkaline Phosphatase 139 U/L (46-116); Anion Gap 8.5 mmol/L (3-11); BUN 54 mg/dL (7-18); Bilirubin, Total 0.4 mg/dL (0.2-1.0); CO2 29.5 mmol/L (21.0-32.0); CREATININE 1.9 mg/dL (0.55-1.02); Chloride 110 mmol/L (98-107); Estimated GFR 25.18 (mL/min/1.73m2); Glucose 148 mg/dL (74-106); Sodium 148 mmol/L (136-145); TSH (W/Ref FT4) 2.57 uIU/mL (0.36-3.74); Total Protein 6.2 g/dL (6.4-8.2); Uric Acid 9.5 mg/dL (2.6-6.0)
[2021-02-10 15:04] LABS: Hemoglobin A1C 6.9 % (<5.7)
[2021-02-10 18:17] LABS: Vitamin B12 817 pg/mL (193-986)
== END 2021-02-10 10:10 | disposition home or self-care (01) ==
LOC: NCHCN 10:09
PROVIDERS: PCP Family Medicine; Visit Provider Family Medicine
DX: E11.9 Type 2 diabetes mellitus without complications (principal); L03.90 Cellulitis, unspecified; E53.8 Deficiency of other specified B group vitamins; R27.0 Ataxia, unspecified; E03.9 Hypothyroidism, unspecified; N28.9 Disorder of kidney and ureter, unspecified; Z79.01 Long term (current) use of anticoagulants; Z87.19 Personal history of other diseases of the digestive system
CPT/HCPCS: 80053; 85027; 82607; 83036; 84443; 84550